=== PATIENT | male | born 1995 | race Caucasian/White ===

== ENCOUNTER 2016-08-09 10:41 | Emergency (ER) | payer BC ==
--- NOTE | 2016-08-09 12:02 | RAD ---
Indication: Left-sided testicle pain. Real-time sonography of the scrotum was performed. The right testis measures 5.4 x 2.5 x 3.1 cm. No intratesticular masses are noted. Normal flow is noted in the right testis. The right epididymis measures 9 x 14 mm. No hydrocele is noted. The left testis measures 5.1 x 2.6 x 3.2 cm. Normal flow is noted in the left testis with no evidence of intratesticular masses. The left epididymis is enlarged measuring 22 x 16 mm and appears heterogeneous in echotexture. Hyperemic flow is noted in the left epididymis consistent with left-sided epididymitis. No hydrocele is noted. 2 small epididymal cysts are noted measuring 9 x 6 x 9 mm and 5 x 3 x 5 mm. IMPRESSION: ENLARGED LEFT EPIDIDYMIS WHICH APPEARS TO BE HETEROGENEOUS AND HYPEREMIC CONSISTENT WITH LEFT-SIDED EPIDIDYMITIS.
[2016-08-09 12:27] LABS: Urine Bilirubin Negative (Negative); Urine Glucose Negative (Negative); Urine Nitrite Negative (Negative)
--- NOTE | 2016-08-09 12:47 | ED ---
GI/ HPI - HPI Summary HPI Summary: Pt sent here by [facility] d/t Lt testicle swelling - torsion vs. orchitis. Pt reports fever of 102F earlier this week. Fever has resolved and not returned since. He has some lower back pain and acute onset of Lt testicle swelling over the past 2 days. Worse w/ briefs d/t pressure so switched to boxer's. Denies ST, HAYNES, rhinorrhea, nasal congestion, cough, SOB, ab pain, N/V/D, rash. No other areas of pain or swelling. Imms are UTD. He does report h/o unprotected intercourse a few weeks ago. Not sure if partner was infected or not but wasn't event thinking about this as a concern for cause of sx today. Denies dysuria, frequent urination, penile d/c, penile lesions. No known h/o STD's. Does not report recent trauma or overuse (ie. excessive masterburation, intercourse). - History of Current Complaint Chief Complaint: EDUrogenitalProblems Time Seen by Provider: 08/09/16 12:20 Stated Complaint: LT TESTICULAR PAIN Hx Obtained From: Patient Pain Intensity: 8 - Allergy/Home Medications Allergies/Adverse Reactions: Allergies Allergy/AdvReac Type Severity Reaction Status Date / Time No Known Allergies Allergy Verified 08/09/16 11:56 PMH/Surg Hx/FS Hx/Imm Hx Previously Healthy: Yes Endocrine/Hematology History: Denies: Hx Anticoagulant Therapy, Hx Blood Disorders, Autoimmune Disease Respiratory History: Denies: Hx Asthma History: Denies: Hx Acute Renal Failure, Hx Chronic Renal Failure, Hx Kidney Infection , Hx Kidney Stones, Other Problems/Disorders Infectious Disease History: No Infectious Disease History: Denies: Traveled Outside the [place] in Last 30 Days - Family History Known Family History: Positive: None - Social History Occupation: Student Lives: With Family - roommates Alcohol Use: Weekly Hx Substance Use: No Substance Use Type: Reports: None Hx Tobacco Use: No Smoking Status (MU): Never Smoked Tobacco Review of Systems Constitutional: Other - see HPI Eyes: Negative Cardiovascular: Negative Respiratory: Negative Gastrointestinal: Negative Positive: see HPI Musculoskeletal: Other - see HPI Negative: Rash Neurological: Negative Psychological: Normal All Other Systems Reviewed And Are Negative: Yes Physical Exam Triage Information Reviewed: Yes Vital Signs On Initial Exam: Initial Vitals Temp Pulse Resp BP Pulse Ox 99.1 F 107 12 134/85 100 08/09/16 10:44 08/09/16 10:44 08/09/16 10:44 08/09/16 10:44 08/09/16 10:44 Vital Signs Reviewed: Yes Appearance: Positive: Well-Appearing, No Pain Distress, Well-Nourished Skin: Positive: Warm, Dry - no rash Head/Face: Positive: Normal Head/Face Inspection - sinuses NTTP Eyes: Positive: Normal, EOMI, Conjunctiva Clear ENT: Positive: Hearing grossly normal, Pharynx normal - mucosa moist. Negative : Nasal congestion, Nasal drainage, Tonsillar swelling, Tonsillar exudate Neck: Positive: Supple, Nontender, No Lymphadenopathy Respiratory/Lung Sounds: Positive: Clear to Auscultation, Breath Sounds Present. Negative: Rales, Rhonchi, Stridor, Wheezes Cardiovascular: Positive: Normal, RRR, Pulses are Symmetrical in both Upper and Lower Extremities, S1, S2. Negative: Leg Edema Left, Leg Edema Right Abdomen Description: Positive: Soft, Other: - mild LLQ TTP w/ palpable LN's in Lt groin area - also w/ mild TTP compared to Rt Male Genital Exam: Positive: epididymal tenderness - Lt, inguinal tenderness - see ABDOMEN for details, scrotum tenderness (L) - edema w/ erythema and TTP, other - no other areas of LN's w/ edema or TTP. Negative: bleeding, hernia mass , lesions, scrotum tenderness (R), testicular tenderness (R), urethral discharge Musculoskeletal: Positive: Normal, Strength/ROM Intact Neurological: Positive: Normal, Sensory/Motor Intact, Alert, Oriented to Person Place, Time, CN Intact II-III Psychiatric: Positive: Normal - Dickinson Coma Scale Coma Scale Total: 15 Diagnostics - Vital Signs Vital Signs Temp Pulse Resp BP Pulse Ox 08/09/16 11:56 98.9 F 95 18 136/73 100 08/09/16 10:44 99.1 F 107 12 134/85 100 - Laboratory Lab Results: Lab Results 08/09/16 Range/Units 12:15 Urine Color Yellow Urine Appearance Clear Urine pH 6.0 (5-9) Ur Specific [place]key 1.009 L (1.010-1.030) Urine Protein Negative (Negative) Urine Ketones Negative (Negative) Urine Blood Negative (Negative) Urine Nitrate Negative (Negative) Urine Bilirubin Negative (Negative) Urine Urobilinogen Negative (Negative) Ur Leukocyte Esterase Negative (Negative) Urine Glucose Negative (Negative) Lab Statement: Any lab studies that have been ordered have been reviewed, and results considered in the medical decision making process. GIGU Course/Dx - Course Course Of Treatment: Pt's presents w/ 2 days h/o Lt testicular edema and pain preceded by fever and LBP over past week. U/s reveals epididymitis w/ 2 small epididymal cysts, all on Left side. No h/o concern for cause other than unprotected intercourse a few weeks ago. Discussed tx'ing empirically today for STD's and having him f/u w/ urology early next week. No sx to suggest mumps so this was not investigated. If symptoms worsen in the meantime, may return to ED. Reviewed danger s/sx of when to return. Pt agrees w/ plan. - Diagnoses Provider Diagnoses: Orchitis and epididymitis, Epididymal cyst - Physician Notifications Discussed Care Of Patient With: Dr. Mares (working at [facility] today - sent pt) Discharge - Discharge Plan Condition: Stable Disposition: HOME Patient Education Materials: Epidermal Inclusion Cysts (ED), Epididymo- Orchitis (ED), Safe Sex (ED), Condom Use (ED), Sexually Transmitted Diseases (ED ) Forms: *Physical Education Release Referrals: [facility] @ [Outside] Filiberto Eric MD [Medical Doctor] - Additional Instructions: The cause of your scrotal swelling today may be infectious and antibiotics provided here today. It is important that you continue NSAID's (ie. ibuprofen, aleve, etc) with food for pain control as well as elevation and rest. Follow-up with urology this week. Call Friday to schedule an appointment. (Contact information included below). *If symptoms worsen or you develop fever, chills, abdominal pain, vomiting, diarrhea, sore throat, trouble breathing, chest pain, return to ED
[2016-08-09] MEDS ORDERED: Ibuprofen TAB* 800 MG PO ONE (12:51)
[2016-08-09] MEDS ORDERED: Azithromycin TAB* 250 MG PO ONE (12:51)
[2016-08-09] MEDS ORDERED: cefTRIAXone VIAL(*) 250 MG VIAL IM ONE (12:51)
[2016-08-09] MEDS ORDERED: Lidocaine 1% INJ* 10 MG/ML 30 ML SDV INJ ONE (13:09)
[2016-08-09 13:36] VITALS: BP 130/77
--- NOTE | 2016-08-13 15:20 | ED ---
Progress - Progress Note Progress Note: Pt returned call - reports he feels 100% better. Explained his test was cancelled and if he wanted testing, he could return to ED and/or [facility] urgent care. Pt received empiric tx of gonorrhea/chlamydia at time of visit. No further tx or testing necessary at this time. Pt voices understanding. Course/Dx - Course Course Of Treatment: Pt's presents w/ 2 days h/o Lt testicular edema and pain preceded by fever and LBP over past week. U/s reveals epididymitis w/ 2 small epididymal cysts, all on Left side. No h/o concern for cause other than unprotected intercourse a few weeks ago. Discussed tx'ing empirically today for STD's and having him f/u w/ urology early next week. No sx to suggest mumps so this was not investigated. If symptoms worsen in the meantime, may return to ED. Reviewed danger s/sx of when to return. Pt agrees w/ plan. - Diagnoses Provider Diagnoses: Orchitis and epididymitis, Epididymal cyst - Provider Notifications Discussed Care Of Patient With: Dr. Mares (working at [facility] today - sent pt)
== END 2016-08-09 13:34 | disposition home or self-care (01) ==
LOC: ED 10:41
DX: N45.1 Epididymitis (principal); N50.89 Other specified disorders of the male genital organs; R50.9 Fever, unspecified; N45.2 Orchitis
CPT/HCPCS: 76870; 81003; 96372; 99283; A9270-GY; J0696